=== PATIENT | female | born 1930 | race Caucasian/White ===

== ENCOUNTER → 2017-06-01 | Outpatient (CLI) | payer OTHER | LOC: CAT 09:20 | DX: S09.90XA Unspecified injury of head, initial encounter (principal); X58.XXXA Exposure to other specified factors, initial encounter; Y93.89 Activity, other specified; Y92.89 Other specified places as the place of occurrence of the external cause; Y99.8 Other external cause status ==

== ENCOUNTER 2018-05-17 12:48 | Emergency (ER) | payer OTHER ==
[~2018-05-17] VITALS: Ht 162.6 cm; Wt 54.4 kg
[2018-05-17 14:00] VITALS: BP 121/73
[2018-05-17] MEDS ORDERED: RALOXIFENE HCL60 MG PO (14:23)
[2018-05-17] MEDS ORDERED: OXYBUTYNIN 5 MG5 M2 PO (14:24)
[2018-05-17] MEDS ORDERED: ADULT ASPIRIN R81 MG PO (14:24)
[2018-05-17] MEDS ORDERED: NABUMETONE 500500 M1 PO ×2 (14:24→14:37)
[2018-05-17] MEDS ORDERED: VITAMIN B122500 MC1 PO (14:36)
[2018-05-17] MEDS ORDERED: FISH OIL 1,001000 M2 PO (14:37)
[2018-05-17] MEDS ORDERED: TURMERIC500 M2 PO (14:37)
[2018-05-17] MEDS ORDERED: CALCIUM 500 +1 EAC5 PO (14:37)
[2018-05-17] MEDS ORDERED: GYNE-LOTRIMIN-745 GM TOP (14:38)
== END 2018-05-17 14:52 | disposition home or self-care (01) ==
LOC: ER 12:48
DX: S00.83XA Contusion of other part of head, initial encounter (principal); M25.551 Pain in right hip; R07.81 Pleurodynia; M25.511 Pain in right shoulder; W01.0XXA Fall on same level from slipping, tripping and stumbling without subsequent striking against object, initial encounter; Y93.89 Activity, other specified; Y92.89 Other specified places as the place of occurrence of the external cause; Y99.8 Other external cause status

== ENCOUNTER 2018-08-27 18:54 | Emergency (ER) | payer OTHER ==
[~2018-08-27] VITALS: Ht 162.6 cm; Wt 56.2 kg
--- NOTE | ~2018-08-27 | EKG ---
[place] [address] [facility] [employer] [address] ELECTROCARDIOGRAM REPORT Name: MISTIDAVI Edgar Room #: DEP [facility]#: [id number] Admission: 08/27/18 Attend Phys: Discharge: 08/27/18 Date of : [birth year] Report #: [id number] THIS REPORT FOR: //name// [facility] ED Test Date: 2018-08-27 Test Time: 19:11:40 Pat Name: DAVI CHAPPELL Department: Room: Gender: F Manager Graphic: WENCESLAO : 1930 Requested By: Nino Luong Order Number: [id number] MD: David Mcknight Measurements Intervals [place] Rate: 60 P: 59 WY: 160 QRS: -8 QRSD: 94 T: 59 QT: 427 QTc: 427 Interpretive Statements Sinus rhythm Multiple ventricular premature complexes Left ventricular hypertrophy Anterior Q waves, possibly due to LVH Compared to ECG 12/25/2001 07:13:22 Ventricular premature complex(es) now present Electronically Signed On 08-28-2018 8:21:34 CDT by David Mcknight [email or web address] <ELECTRONICALLY SIGNED> By: David Mcknight MD, [facility] 08/28/18820 10 10 David Mcknight MD, [facility] /EPI
[~2018-08-27 18:54] MED LIST: ADULT ASPIRIN R81 MG PO; CALCIUM 500 +1 EAC5 PO; FISH OIL 1,001000 M2 PO; GYNE-LOTRIMIN-745 GM TOP; NABUMETONE 500500 M1 PO; OXYBUTYNIN 5 MG5 M2 PO; RALOXIFENE HCL60 MG PO; TURMERIC500 M2 PO; VITAMIN B122500 MC1 PO
[2018-08-27] MEDS ORDERED: PHOSPHA 250 NE250 MG PO (19:30)
[2018-08-27] MEDS ORDERED: PREVAGEN PO (19:32)
[2018-08-27] MEDS ORDERED: TYLENOL EXTRA500 MG PO (19:33)
[2018-08-27] MEDS ORDERED: CEFDINIR300 MG PO (19:34)
[2018-08-27 20:00] LABS: BASOPHILS 1.1 % (0.0-2.0); HEMATOCRIT 36.7 % (37.0-47.0); HEMOGLOBIN 12.6 gm/dL (12.0-15.0); LYMPHOCYTES 29.3 % (24.0-44.0); MCH 31.8 pg (26.0-34.0); MCHC 34.3 g/dL (28.0-37.0); MCV 92.6 fL (80.0-100.0); MONOCYTES 10.1 % (1.0-8.0); PLATELET COUNT 179 thou/uL (150-400); POLYS 55.5 % (36.0-66.0); RBC 3.96 mil/uL (4.20-5.00); RDW 13.4 % (10.5-14.5); WBC 7.2 thou/uL (4.0-11.0)
[2018-08-27 20:07] LABS: ANION GAP 12 mmol/L (7-16); BUN 18 mg/dL (7-18); CALCIUM 9.9 mg/dL (8.5-10.1); CHLORIDE 101 mmol/L (98-107); CO2 25 mmol/L (21-32); CREATININE 0.9 mg/dL (0.6-1.0); GLUCOSE 94 mg/dL (74-106); POTASSIUM 4.2 mmol/L (3.5-5.1); SODIUM 138 mmol/L (136-145)
[2018-08-27 20:14] LABS: APTT 24.3 Seconds (24.5-32.8); PROTIME 10.1 Seconds (9.3-11.4)
[2018-08-27 20:15] LABS: ALBUMIN 3.4 g/dL (3.4-5.0); MAGNESIUM 1.9 mg/dL (1.8-2.4); SGOT 32 U/L (15-37); SGPT 26 U/L (30-65); TOTAL BILIRUBIN 0.6 mg/dL (<0.1-1.0); TOTAL PROTEIN 7.5 g/dL (6.4-8.2); TROPONIN-I <0.06 ng/mL (<0.06)
[2018-08-27 20:18] LABS: URINE BILIRUBIN NEGATIVE (Negative); URINE BLOOD NEGATIVE (Negative); URINE CLARITY CLEAR; URINE COLOR YELLOW; URINE GLUCOSE-RANDOM* NEGATIVE (Negative); URINE KETONES NEGATIVE (Negative); URINE LEUKOCYTES-REFLEX NEGATIVE (Negative); URINE NITRITE-REFLEX NEGATIVE (Negative); URINE PROTEIN (DIPSTICK) NEGATIVE (Negative); URINE SPECIFIC GRAVITY <= 1.005 (1.005-1.035); URINE UROBILINOGEN 0.2 E.U./dl (0.2-1.0)
[2018-08-27 21:33] VITALS: BP 123/56
== END 2018-08-27 21:33 | disposition home or self-care (01) ==
LOC: ER 18:54
PROVIDERS: Emergency Medicine
DX: R42 Dizziness and giddiness (principal); R00.1 Bradycardia, unspecified; Z90.49 Acquired absence of other specified parts of digestive tract